=== PATIENT | male | born 1965 | race African-American/Black ===

== ENCOUNTER 2022-01-11 19:08 | Emergency (ER) | payer MEDICAID ==
[~2022-01-11] VITALS: Ht 185.4 cm; Wt 90.7 kg
[2022-01-11 19:14] VITALS: BP 154/113
--- NOTE | 2022-01-11 19:20 | NUR ---
IAIN FROM AM/PM, TRIAGED AND SENT TO LOBBY IN NAD. PTS ONLY COMPLAINT IS THAT HE IS THIRSTY.
--- NOTE | 2022-01-11 21:30 | NUR ---
PATIENT LEFT WITHOUT BEING SEEN BY DR. TONEY. NO FURTHER CARE PROVIDED FOR PATIENT.
== END 2022-01-11 21:30 | disposition left against medical advice (07) ==
LOC: MED 19:08
DX: R63.1 Polydipsia (principal); Z53.21 Procedure and treatment not carried out due to patient leaving prior to being seen by health care provider

== ENCOUNTER 2022-01-11 21:35 | Emergency (ER) | payer MEDICAID ==
[~2022-01-11] VITALS: Ht 182.9 cm; Wt 90.7 kg
[2022-01-11 21:50] VITALS: BP 150/103
--- NOTE | 2022-01-11 21:50 | NUR ---
BIBA TO BED 9 VIA [facility]
--- NOTE | 2022-01-12 01:15 | NUR ---
Jas monroe in ED - 01/12/22 at 0121 by [id number] Spoke to Poison Control Pharmacist Damir and informed Poison Control Pharmacist Damir of all requested events, labs, medications, and vital signs since patient arrived in ER. Poison Control Pharmacist Damir stated to "keep airway open," and "give support care." ER Physician verbally informed of Poison Control Pharmacist Damir's orders. ER Physician verbalized understanding.
--- NOTE | 2022-01-12 01:57 | NUR ---
CALLED [facility] FOR A RIDE FOR PATIENT.
[2022-01-12 01:58] VITALS: BP 128/85
--- NOTE | 2022-01-12 01:59 | NUR ---
Patient discharged with v/s stable. Written and verbal after care instructions given and explained. Patient verbalized understanding. Ambulatory with steady gait. All questions addressed prior to discharge. Advised to follow up with PMD.
== END 2022-01-12 01:57 | disposition home or self-care (01) ==
LOC: MED 21:35
DX: R53.1 Weakness (principal); I10 Essential (primary) hypertension; Z79.899 Other long term (current) drug therapy
CPT/HCPCS: 99285

== ENCOUNTER 2022-01-12 06:49 | Emergency (ER) | payer MEDICAID ==
[~2022-01-12] VITALS: Ht 182.9 cm; Wt 89.8 kg
[2022-01-12 06:49] VITALS: BP 168/98
--- NOTE | 2022-01-12 07:10 | NUR ---
56 Y/O MALE BIBA FROM OUTSIDE A FACILITY C/C "ALTERED" AND WHEN STAFF ATTEMPTED TO HELP, PT BECAME COMBATIVE. 3RD VISIT XLAST NIGHT. PT NOT COMBATIVE WITH STAFF BUT IS REFUSING TO ANSWER ALL QUESTIONS PMH:BIPOLAR, HTN NKDA
[2022-01-12 07:35] VITALS: BP 168/98
--- NOTE | 2022-01-12 10:30 | NUR ---
PT REFUSING TO LEAVE. PT WAS OFFERED UBER LAST NIGHT AND REFUSED TO GET IN PE RNIGHT SHIFT AND SECURITY. SECURITY CALLED, PT REFUSED TO LEAVE. [place] [employer] CALLED FOR ASSISTANCE AND ESCORTED PATIENT OUT.
--- NOTE | 2022-01-12 11:11 | NUR ---
PATIENT BIB [employer]. PATIENT EXAMINED BY DR. REYNOLDS. PATIENT MEDICALLY CLEARED AND RELEASED IN CUSTODY IN STABLE CONDITION. ORIGINAL PRE-BOOK FORM GIVEN TO OFFICER [facility] #[id number].
== END 2022-01-12 07:35 | disposition home or self-care (01) ==
LOC: MED 06:49
DX: R53.1 Weakness (principal); I10 Essential (primary) hypertension; Z79.899 Other long term (current) drug therapy
CPT/HCPCS: 99283